=== PATIENT | female | born 1990 | race Caucasian/White ===

== ENCOUNTER 2020-03-06 19:59 | Emergency (ER) | payer OTHER ==
[~2020-03-06] VITALS: Ht 160 cm; Wt 56.7 kg
[~2020-03-06 19:59] MED LIST: BACTRIM DS TAB1 EACH PO; NOHOMEMEDICATIONS; NORCO 5-325 TA1 EACH PO; PYRIDIUM100 M1 PO
[2020-03-06 21:17] VITALS: BP 124/75
== END 2020-03-06 21:17 | disposition home or self-care (01) ==
LOC: ER 19:59
DX: O9A.212 Injury, poisoning and certain other consequences of external causes complicating pregnancy, second trimester (principal); S00.212A Abrasion of left eyelid and periocular area, initial encounter; Z3A.24 24 weeks gestation of pregnancy; X58.XXXA Exposure to other specified factors, initial encounter; Y93.89 Activity, other specified; Y92.89 Other specified places as the place of occurrence of the external cause; Y99.8 Other external cause status

== ENCOUNTER 2021-04-12 19:44 | Emergency (ER) | payer OTHER ==
[~2021-04-12] VITALS: Ht 154.9 cm; Wt 68.0 kg
[2021-04-12 21:45] VITALS: BP 109/60
== END 2021-04-12 21:53 | disposition home or self-care (01) ==
LOC: ER 19:44
DX: M25.512 Pain in left shoulder (principal); M54.2 Cervicalgia; W10.9XXA Fall (on) (from) unspecified stairs and steps, initial encounter; Y93.89 Activity, other specified; Y92.89 Other specified places as the place of occurrence of the external cause; Y99.8 Other external cause status